=== PATIENT | male | born 1990 | race Caucasian/White ===

== ENCOUNTER 2023-01-06 21:05 | Observation (INO) ==
[2023-01-06] MEDS ORDERED: MoRPHine SULFATE 4 MG/ML 1 ML CARP\\VIAL IV STA (21:48)
[2023-01-06] MEDS ORDERED: SODIUM CHLORIDE 0.9% 1000ML 1,000 ML IV STA (21:48)
[2023-01-06] MEDS ORDERED: ONDANSETRON INJ 2 MG/ML 2 ML VIAL IV STA (21:48)
[2023-01-06 21:56] LABS: Basophils # (auto) 0.02 K/uL (0-0.2); Basophils % (auto) 0.2 %; Eosinophils # (auto) 0.06 K/uL (0-0.50); Eosinophils % (auto) 0.5 %; Hematocrit (blood only) 41.8 % (42.0-52.0); Hemoglobin 15.4 g/dl (14.0-18.0); Immature Granulocytes # (auto) 0.04 K/uL (0.01-0.20); Immature Granulocytes % (auto) 0.3 %; Lymphocytes # (auto) 1.38 K/uL (1.2-3.4); Lymphocytes % (auto) 11.1 %; Mean Corpuscular Hemoglobin 32.2 pg (25.0-34.0); Mean Corpuscular Hgb Conc 36.8 g/dL (32.0-36.0); Mean Corpuscular Volume 87.4 fL (80.0-100.0); Mean Platelet Volume 10.6 fL (9.4-12.4); Monocytes # (auto) 0.65 K/uL (0.11-0.59); Monocytes % (auto) 5.2 %; Neutrophils # (auto) 10.25 K/uL (1.40-6.50); Neutrophils % (auto) 82.7 %; Platelet Count 158 K/uL (130-400); RDW Coefficient of Variation 11.9 % (11.5-14.5); RDW Standard Deviation 38.1 fL (36.4-46.3); Red Blood Count 4.78 M/uL (4.70-6.10)
--- NOTE | 2023-01-06 21:58 | Emergency Department Note ---
History of Present Illness General Chief complaint: Abdominal Pain Stated complaint: ABD PAIN,NAUSEA Time Seen by Provider: 01/06/23 21:37 History of Present Illness Maximum Pain Intensity: 6 This is a 32-year-old male presenting to the emergency department for evaluation of right-sided abdominal pain. Patient symptoms began around 6 PM as he was cooking dinner. Initially he had discomfort that was in the periumbilical region, but it very quickly became more right-sided. He is nauseated without vomiting. He did have 1 small episode of diarrhea after onset of symptoms. The patient did eat a few green beans around 7 PM, but was not able to eat his dinner because of his discomfort. Patient has not had fevers or chills. He does not take medication on a regular basis and is otherwise healthy. No history of abdominal surgery. Current discomfort is rated a 6/10. Home Medications Medication Instructions Recorded Confirmed Type No Known Home Medications 01/06/23 01/06/23 History Allergies Allergy/AdvReac Type Severity Reaction Status Date / Time No Known Allergies Verified 01/06/23 22:06 Past Med/Surg History Medical History No chronic diseases present Surgical History No significant past surgical history Social History Smoking Status: Never smoker Preferred Language: [place] Feels Safe at Home: Yes Review of Systems A total of 10 systems reviewed and were otherwise negative Physical Exam Vital Signs Vital Signs - 24 hr 01/06/23 21:06 01/06/23 22:07 Temperature 37.1 C Temperature Source Temporal Artery Scan Pulse Rate 79 89 Pulse Rhythm Regular Pulse Strength Normal Respiratory Rate 18 Respiratory Effort / Characteristics Non-Labored Spontaneous Respiratory Depth Normal Respiratory Pattern Regular Blood Pressure 119/79 Blood Pressure Mean 92 Blood Pressure Position Sitting Pulse Oximetry 96 Oxygen Delivery Method Room Air Sepsis Recent Fever Within 48 Hours No Sepsis New/Unexplained Change in Mental Status N/A Sepsis Action Taken by Nursing No Action Required VITALS: Vitals are noted on the nurse's note and reviewed by myself. Vital signs stable. GENERAL: Well-developed, well-nourished, white male, who is in no acute distress and resting comfortably. Patient is cooperative with the examination. HEAD: Normocephalic atraumatic. MOUTH: Mucous membranes moist. Tonsils are not enlarged. Pharynx without erythema, blood, or exudate. Uvula midline. Airway patent. NECK: Supple without nuchal rigidity. No lymphadenopathy. No thyromegaly. Cervical spine is nontender. HEART: Regular rate and rhythm without murmurs gallops or rubs. LUNGS: Clear to auscultation bilaterally without wheezes, rales or rhonchi. No retractions or accessory muscle use. ABDOMEN: Positive normal bowel sounds x 4. Soft, nontender, without masses or organomegaly. No guarding or rebound tenderness. MUSCULOSKELETAL: No muscle atrophy, erythema, or edema noted. Full range of motion in all extremities. Course Administered Medications Discontinued Medications Sodium Chloride (Nss 1000ml) 1,000 mls @ 999 mls/hr IV .Q1H1M STA Stop: 01/06/23 22:48 Last Infusion: 01/06/23 23:57 Dose: 0 mls/hr Documented By: Admin: 01/06/23 21:58 Dose: 999 mls/hr Documented By: BEN Cefoxitin Sodium (Mefoxin) 2,000 mg in 60 mls @ 100 mls/hr IV NOW STA Stop: 01/06/23 23:47 Last Infusion: 01/07/23 00:19 Dose: 0 mls/hr Documented By: Admin: 01/06/23 23:44 Dose: 100 mls/hr Documented By: JORGE Ioversol (Optiray 320 100ml) 100 ml IV ONCE ONE Stop: 01/06/23 22:48 Last Admin: 01/06/23 22:47 Dose: 93 ml Documented By: SANTI Morphine Sulfate (Morphine Sulfate 4 Mg/Ml 1 Ml Carp\Vial) 4 mg IV NOW STA Stop: 01/06/23 21:49 Last Admin: 01/06/23 21:59 Dose: 4 mg Documented By: BEN Ondansetron HCl (Ondansetron Inj 2 Mg/Ml 2 Ml Vial) 4 mg IV NOW STA Stop: 01/06/23 21:49 Last Admin: 01/06/23 21:59 Dose: 4 mg Documented By: BEN Medical Decision Making Differential Diagnosis Differential diagnosis: Etiologies such as biliary colic, cholecystitis, hepatitis, pancreatitis, cardiac disease, pancreatitis, gastritis, peptic ulcer disease, appendicitis, cystitis, diverticulitis, mesenteric ischemia, inflammatory bowel disease, ileus, bowel obstruction, testicular/adnexal torsion, aortic pathology, shingles, as well as others were considered Laboratory Data 01/06/23 21:22 01/06/23 21:22 Lab Results 01/06/23 01/06/23 Range/Units 21:22 21:22 WBC 12.40 H (4.8-10.8) K/ul RBC 4.78 (4.70-6.10) M/uL Hgb 15.4 (14.0-18.0) g/dl Hct 41.8 L (42.0-52.0) % MCV 87.4 (80.0-100.0) fL MCH 32.2 (25.0-34.0) pg MCHC 36.8 H (32.0-36.0) g/dL RDW Std Deviation 38.1 (36.4-46.3) fL RDW Coeff of Hung 11.9 (11.5-14.5) % Plt Count 158 (130-400) K/uL MPV 10.6 (9.4-12.4) fL Immature Gran % (Auto) 0.3 % Neut % (Auto) 82.7 % Lymph % (Auto) 11.1 % [place] % (Auto) 5.2 % Eos % (Auto) 0.5 % Baso % (Auto) 0.2 % Neut # (Auto) 10.25 H (1.40-6.50) K/uL Lymph # (Auto) 1.38 (1.2-3.4) K/uL [place] # (Auto) 0.65 H (0.11-0.59) K/uL Eos # (Auto) 0.06 (0-0.50) K/uL Baso # (Auto) 0.02 (0-0.2) K/uL Immature Gran # (Auto) 0.04 (0.01-0.20) K/uL Sodium 136 (136-145) mmol/L Potassium 3.9 (3.5-5.1) mmol/L Chloride 101 (98-107) mmol/L Carbon Dioxide 28 (21-32) mmol/L Anion Gap 7 (3-11) BUN 20 (6-23) mg/dl Creatinine 1.31 (0.6-1.4) mg/dl Est Cr Clr Drug Dosing 91.6 ml/min Est GFR ( Amer) 82.3 ml/min Est GFR (Non-Af Amer) 71.0 ml/min BUN/Creatinine Ratio 15.3 (10-20) Glucose 124 H (70-99(Fasting)) mg/dl Calcium 9.2 (8.6-10.3) mg/dl Total Bilirubin 1.0 (0.2-1.0) mg/dl AST 27 (13-39) U/L ALT 28 (7-52) U/L Alkaline Phosphatase 48 (34-104) U/L Total Protein 7.6 (6.0-8.3) gm/dl Albumin 4.8 (3.4-5.0) gm/dl Globulin 2.8 (2.5-4.0) gm/dl Albumin/Globulin Ratio 1.7 (0.9-2) Lipase 6 L (11-82) U/L Imaging Data Radiologist's Impression: Abdomen/Pelvis CT 01/06/23 21:48 CR Exam(s): CT ABDOMEN + PELVIS With Contrast IV Amt: 93 ML OPTIRAY 320 EXAM: CT Abdomen and Pelvis With Intravenous Contrast CLINICAL HISTORY: Reason for exam: right side abd pain. TECHNIQUE: Axial computed tomography images of the abdomen and pelvis with intravenous contrast. CTDI is 24.2 mGy and DLP is 1193.04 mGy-cm. Automated exposure control was utilized for the study. A dose lowering technique was utilized adhering to the principles of ALARA. CONTRAST: Patient received 93 ML OPTIRAY 320 of IV contrast COMPARISON: No relevant prior studies available. FINDINGS: Lung bases: Unremarkable. No mass. No consolidation. ABDOMEN: Liver: Unremarkable. No mass. Gallbladder and bile ducts: Unremarkable. No calcified stones. No ductal dilation. Pancreas: Unremarkable. No mass. No ductal dilation. Spleen: Unremarkable. No splenomegaly. Adrenals: Unremarkable. No mass. Kidneys and ureters: Unremarkable. No solid mass. No hydronephrosis. Stomach and bowel: Unremarkable. No obstruction. No mucosal thickening. PELVIS: Appendix: The appendix is thick-walled with periappendiceal inflammatory change. No periappendiceal fluid collection is seen. Bladder: Unremarkable. No mass. Reproductive: Unremarkable as visualized. ABDOMEN and PELVIS: Intraperitoneal space: Unremarkable. No free air. No significant fluid collection. Bones/joints: No acute fracture. No dislocation. Soft tissues: Unremarkable. Vasculature: Unremarkable. No abdominal aortic aneurysm. Lymph nodes: Unremarkable. No enlarged lymph nodes. IMPRESSION: Findings compatible with acute appendicitis without evidence for perforation or abscess. Communications: Verify Receipt Electronically signed by: Ej Rosales MD 01/06/23 23:00 PM MDM Narrative Physical exam and history were performed. Nursing notes, EMR, and Medication List were personally reviewed. No social concerns were identified as barriers to patients care. Patient appears to have abdominal pain that started this evening. He does not appear toxic and vitals are stable. IV access was established and labs were obtained. Patient was hydrated and medicated as above. Because of his symptoms he was sent to CT scan for imaging. Patient's blood work is as above and was reviewed. He does have a slightly elevated white blood cell count of 12,000. He does not have significant anemia, bandemia, or significant electrolyte imbalance. Transaminases are not diagnostic. CT scan was reviewed by myself and radiology and does suggest acute appendicitis. This would correlate with the patient's symptoms. Patient was started on Mefoxin here in the ER. Case was discussed with the on-call general surgeon, Dr. Massey, who will evaluate the patient. Please see the surgical team's dictation for further pa tient course, plan, disposition. The chart was completed utilizing [employer] Speech Voice Recognition Software. Grammatical errors, random word insertions, pronoun errors, and incomplete sentences are an occasional consequence of this system due to software limitations, ambient noise, and hardware issues. Any formal questions or concerns about the content, text, or information contained within the body of this dictation should be directly addressed to the provider for clarification. . Impression & Plan Acute appendicitis Discharge Plan Visit Data Chief Complaint: Abdominal Pain Stated Complaint: ABD PAIN,NAUSEA ED Provider: Trav Holly ED Midlevel Provider: Adam Bourgeois Discharge Problem: Acute appendicitis Patient Disposition: Admitted As Inpatient Discharge Instructions Interventions: ED Discharge Assessment Last Done: 01/07/23 00:25
[2023-01-06 22:23] LABS: Albumin Level 4.8 gm/dl (3.4-5.0); Calcium 9.2 mg/dl (8.6-10.3); Potassium 3.9 mmol/L (3.5-5.1)
[2023-01-06 22:29] LABS: Albumin Globulin Ratio 1.7 (0.9-2); BUN Creatinine Ratio 15.3 (10-20); Creatinine Clr Calc Pharmacy 91.6 ml/min; Est GFR (African American) 82.3 ml/min; Globulin 2.8 gm/dl (2.5-4.0); Total Protein 7.6 gm/dl (6.0-8.3)
[2023-01-06] MEDS ORDERED: OPTIRAY 320 100ml IV ONE (22:47)
--- NOTE | 2023-01-06 23:01 | CT Scan Report ---
Exam(s): CT ABDOMEN + PELVIS With Contrast IV Amt: 93 ML OPTIRAY 320 EXAM: CT Abdomen and Pelvis With Intravenous Contrast CLINICAL HISTORY: Reason for exam: right side abd pain. TECHNIQUE: Axial computed tomography images of the abdomen and pelvis with intravenous contrast. CTDI is 24.2 mGy and DLP is 1193.04 mGy-cm. Automated exposure control was utilized for the study. A dose lowering technique was utilized adhering to the principles of ALARA. CONTRAST: Patient received 93 ML OPTIRAY 320 of IV contrast COMPARISON: No relevant prior studies available. FINDINGS: Lung bases: Unremarkable. No mass. No consolidation. ABDOMEN: Liver: Unremarkable. No mass. Gallbladder and bile ducts: Unremarkable. No calcified stones. No ductal dilation. Pancreas: Unremarkable. No mass. No ductal dilation. Spleen: Unremarkable. No splenomegaly. Adrenals: Unremarkable. No mass. Kidneys and ureters: Unremarkable. No solid mass. No hydronephrosis. Stomach and bowel: Unremarkable. No obstruction. No mucosal thickening. PELVIS: Appendix: The appendix is thick-walled with periappendiceal inflammatory change. No periappendiceal fluid collection is seen. Bladder: Unremarkable. No mass. Reproductive: Unremarkable as visualized. ABDOMEN and PELVIS: Intraperitoneal space: Unremarkable. No free air. No significant fluid collection. Bones/joints: No acute fracture. No dislocation. Soft tissues: Unremarkable. Vasculature: Unremarkable. No abdominal aortic aneurysm. Lymph nodes: Unremarkable. No enlarged lymph nodes. IMPRESSION: Findings compatible with acute appendicitis without evidence for perforation or abscess. Communications: Verify Receipt Electronically signed by: Ej Rosales MD 01/06/23 23:00 PM
[2023-01-06] MEDS ORDERED: cefOXitin 2,000 MG/60 ML BAG IV STA (23:12)
[2023-01-06 23:58] LABS: Appearance Urine Clear (Clear); Bilirubin Urine Negative (Negative); Blood Urine Negative (Negative); Color Urine Yellow; Glucose Urine UA Negative (Negative); Ketones Urine Negative (Negative); Leukocyte Esterase Urine Negative (Negative); Nitrite Urine Negative (Negative); Protein Urine Negative (Negative); Specific Gravity Urine 1.043 (1.000-1.030); Urobilinogen Urine Negative (Negative); pH Urine 6.5 (4.5-7.5)
[2023-01-07] MEDS: LACTATED RINGER'S 1,000 ML IV SCH ×3 (00:38→22:45)
[2023-01-07] MEDS ORDERED: MoRPHine SULFATE 4 MG/ML 1 ML CARP\\VIAL IV PRN (00:38)
[2023-01-07] MEDS ORDERED: ONDANSETRON INJ 2 MG/ML 2 ML VIAL IV PRN (00:38)
[2023-01-07] MEDS ORDERED: MoRPHine SULFATE 2 MG/ML CARP IV PRN (00:38)
--- NOTE | 2023-01-07 09:29 | Anesthesiology Consultation ---
Date of Service January 07, 2023 Assessment & Plan Chart Review Chart Review: clerk entry level initiated History Surgery Operation Date: 01/07/23 08:20 Proposed Procedures p Laparoscopic Appendectomy - Hilda Virk MD Height/Weight Height: 5 ft 10 in Weight: 92.4 kg Allergies Allergy/AdvReac Type Severity Reaction Status Date / Time No Known Allergies Verified 01/06/23 22:06 Medications Home Medications Medication Instructions Recorded Confirmed Last Taken No Known Home Medications 01/06/23 01/06/23 Unknown Active Medications Generic Name Dose Route Start Last Admin Trade Name Freq PRN Reason Stop Dose Admin Lactated Ringer's 1,000 mls @ 100 mls/hr 01/07/23 00:38 01/07/23 00:38 Lr IV 02/06/23 00:37 100 mls/hr .Q10H ANAY Administration Morphine Sulfate 2 mg 01/07/23 00:38 01/07/23 01:08 Morphine Sulfate 2 Mg/Ml Carp IV 01/21/23 00:37 2 mg Q3H PRN Administration Pain (1,2,3,4,5) & Pre PT Ondansetron HCl 4 mg 01/07/23 00:38 01/07/23 01:08 Ondansetron Inj 2 Mg/Ml 2 Ml Vial IV 02/06/23 00:37 4 mg Q4H PRN Administration Nausea And Vomiting NPO Date Last Intake of Fluids: 01/07/23 Time Last Intake of Fluids: 00:35 Date Last Intake of Solids: 01/07/23 Time Last Intake of Solids: 00:35 Past Medical History Medical History No chronic diseases present Past Surgical History Surgical History No significant past surgical history Social History Smoking Status: Never smoker Do You Dip or Chew Tobacco: No Hx Alcohol Use: Yes Alcohol type: beer alcohol intake frequency: other Alcohol Intake Frequency Comment: Weekends. Hx Substance Use: No Physical Exam Vital Signs Last Vital Signs Temp 98.1 F 01/07/23 07:12 Pulse 79 01/07/23 07:12 Resp 16 01/07/23 07:12 BP 119/69 01/07/23 07:12 Pulse Ox 95 01/07/23 07:12 O2 Del Method Room Air 01/07/23 07:12 Testing Laboratory Results 01/06/23 21:22 01/06/23 21:22 Urine Color Yellow 01/06/23 Unknown Urine Appearance Clear (Clear) 01/06/23 Unknown Urine pH 6.5 (4.5-7.5) 01/06/23 Unknown Ur Specific [place] 1.043 (1.000-1.030) H 01/06/23 Unknown Urine Protein Negative (Negative) 01/06/23 Unknown Urine Glucose (UA) Negative (Negative) 01/06/23 Unknown Urine Ketones Negative (Negative) 01/06/23 Unknown Urine Nitrite Negative (Negative) 01/06/23 Unknown Ur Leukocyte Esterase Negative (Negative) 01/06/23 Unknown
--- NOTE | 2023-01-07 10:05 | History & Physical Report ---
Date of Service January 07, 2023 Assessment & Plan (1) Acute appendicitis: Plan 32 year-old male with less than 24 hour history of abdominal pain with associated nausea and diarrhea. CT scan with acute appendicitis without perforation or rupture. Leukocytosis of 12k, afebrile. Plan: Discussed with patient imaging, lab and exam findings consistent with acute appendicitis. Discussed laparoscopic appendectomy, associated risks and expected recovery. Will plan to proceed with laparoscopic appendectomy today. All questions answered informed consent obtained keep npo Dr. Virk has seen patient and obtained informed consent, agrees with above. I reviewed pt's H/P, labs and CT scan with pt. I recommend to do laparoscopic appendectomy, possible open. Discussion with the patient about benefits the risk and the alternate of the procedure, the risks may include but not limited such as a bleeding, infection, abscess, injury to other organs, bowel obstruction. Patient understand, he signed informed consent. I answered all questions. pre-op iv antibiotic. Admission and Anticipated Discharge Date Admission Date: January 06, 2023 History of Present Illness Chief Complaint: abdominal pain Primary Care Provider: NO PCP Amor is a 32 year-old male who presented to emergency room last evening with complaint of abdominal pain that began at 6 pm. Pain was generalized and then radiated to the right lower abdomen. Associated nausea and diarrhea. No fevers or chills. No prior history of similar abdominal pain. No previous abdominal surgeries. Low appetites last evening. ER work-up included labs which showed leukocytosis of 12k . CT scan of abdomen/pelvis with IV contrast showing thick walled appendix with periappendiceal inflammation consistent with acute appendicitis. Current states he is feeling okay, pain about the same but controlled with pain medication. No vomiting since admission. No fevers Allergies Allergy/AdvReac Type Severity Reaction Status Date / Time No Known Allergies Verified 01/06/23 22:06 Home Medications Medication Instructions Recorded Confirmed Type No Known Home Medications 01/06/23 01/06/23 History Past Med/Surg History Medical History No chronic diseases present Surgical History No significant past surgical history Social History Smoking Status: Never smoker Second Hand Exposure: No; Do You Dip or Chew Tobacco: No; Tobacco Cessation Education Requested by Patient: No Hx Alcohol Use: Yes Alcohol type: beer Hx Substance Use: No Preferred Language: [place] Communication Ability: Effective Medical Education Specialist Required: No Beliefs That Will Affect Care: None Current Living Situation: Spouse Other Information That Helps Us Care for You: No Feels Safe at Home: Yes Safety Concerns: Feels Safe At This Time Assistive Devices: Glasses Assistive Devices Comment: Glasses not present at this time. Review of Systems Review of Systems: All systems reviewed & are unremarkable except as noted in HPI & below Physical Exam Constitutional: WD/WN, vitals as above cooperative and comfortable; no acute distress and not ill appearing Neck: normal visual inspection and trachea midline Respiratory: normal respiratory effort, lungs clear to auscultation Cardiovascular: RRR, no murmur, no edema Gastrointestinal (Abdomen): Inspection/Auscultation: abdomen normal to inspection; abdomen not distended and no abdominal surgical scar Percussion/Palpation: + abdomen tender (RLQ, positive Mcburnerys point) and abdomen soft; no guarding, abdomen not rigid and abdomen not firm Skin: no rashes, warm and dry no jaundice Psychiatric: A+Ox3, euthymic affect Results & Data Results & Data Vital Signs (Past 12 Hours) Vital Signs Temp Pulse Pulse Resp BP BP Pulse Ox 01/07/23 07:12 36.7 C 79 16 119/69 95 01/07/23 00:35 01/07/23 00:35 01/07/23 00:35 36.9 C 80 18 113/71 96 01/06/23 23:45 80 20 143/71 H 96 01/06/23 23:45 79 98 01/06/23 22:07 89 O2 Del Method 01/07/23 07:12 Room Air 01/07/23 00:35 Room Air 01/07/23 00:35 Room Air 01/07/23 00:35 Room Air 01/06/23 23:45 Room Air 01/06/23 23:45 Room Air 01/06/23 22:07 Laboratory Results 01/06/23 01/06/23 01/06/23 Range/Units Unknown Unknown 21:22 WBC (4.8-10.8) K/ul RBC (4.70-6.10) M/uL Hgb (14.0-18.0) g/dl Hct (42.0-52.0) % MCV (80.0-100.0) fL MCH (25.0-34.0) pg MCHC (32.0-36.0) g/dL RDW Std Deviation (36.4-46.3) fL RDW Coeff of Hung (11.5-14.5) % Plt Count (130-400) K/uL MPV (9.4-12.4) fL Immature Gran % (Auto) % Neut % (Auto) % Lymph % (Auto) % [place] % (Auto) % Eos % (Auto) % Baso % (Auto) % Neut # (Auto) (1.40-6.50) K/uL Lymph # (Auto) (1.2-3.4) K/uL [place] # (Auto) (0.11-0.59) K/uL Eos # (Auto) (0-0.50) K/uL Baso # (Auto) (0-0.2) K/uL Immature Gran # (Auto) (0.01-0.20) K/uL Sodium 136 (136-145) mmol/L Potassium 3.9 (3.5-5.1) mmol/L Chloride 101 (98-107) mmol/L Carbon Dioxide 28 (21-32) mmol/L Anion Gap 7 (3-11) BUN 20 (6-23) mg/dl Creatinine 1.31 (0.6-1.4) mg/dl Est Cr Clr Drug Dosing 91.6 ml/min Est GFR ( Amer) 82.3 ml/min Est GFR (Non-Af Amer) 71.0 ml/min BUN/Creatinine Ratio 15.3 (10-20) Glucose 124 H (70-99(Fasting)) mg/dl Calcium 9.2 (8.6-10.3) mg/dl Total Bilirubin 1.0 (0.2-1.0) mg/dl AST 27 (13-39) U/L ALT 28 (7-52) U/L Alkaline Phosphatase 48 (34-104) U/L Total Protein 7.6 (6.0-8.3) gm/dl Albumin 4.8 (3.4-5.0) gm/dl Globulin 2.8 (2.5-4.0) gm/dl Albumin/Globulin Ratio 1.7 (0.9-2) Lipase 6 L (11-82) U/L Urine Color Yellow Urine Appearance Clear (Clear) Urine pH 6.5 (4.5-7.5) Ur Specific [place] 1.043 H (1.000-1.030) Urine Protein Negative (Negative) Urine Glucose (UA) Negative (Negative) Urine Ketones Negative (Negative) Urine Blood Negative (Negative) Urine Nitrite Negative (Negative) Urine Bilirubin Negative (Negative) Urine Urobilinogen Negative (Negative) Ur Leukocyte Esterase Negative (Negative) SARS-CoV-2, RNA, NAAT NEGATIVE (NEGATIVE) 01/06/23 Range/Units 21:22 WBC 12.40 H (4.8-10.8) K/ul RBC 4.78 (4.70-6.10) M/uL Hgb 15.4 (14.0-18.0) g/dl Hct 41.8 L (42.0-52.0) % MCV 87.4 (80.0-100.0) fL MCH 32.2 (25.0-34.0) pg MCHC 36.8 H (32.0-36.0) g/dL RDW Std Deviation 38.1 (36.4-46.3) fL RDW Coeff of Hung 11.9 (11.5-14.5) % Plt Count 158 (130-400) K/uL MPV 10.6 (9.4-12.4) fL Immature Gran % (Auto) 0.3 % Neut % (Auto) 82.7 % Lymph % (Auto) 11.1 % [place] % (Auto) 5.2 % Eos % (Auto) 0.5 % Baso % (Auto) 0.2 % Neut # (Auto) 10.25 H (1.40-6.50) K/uL Lymph # (Auto) 1.38 (1.2-3.4) K/uL [place] # (Auto) 0.65 H (0.11-0.59) K/uL Eos # (Auto) 0.06 (0-0.50) K/uL Baso # (Auto) 0.02 (0-0.2) K/uL Immature Gran # (Auto) 0.04 (0.01-0.20) K/uL Sodium (136-145) mmol/L Potassium (3.5-5.1) mmol/L Chloride (98-107) mmol/L Carbon Dioxide (21-32) mmol/L Anion Gap (3-11) BUN (6-23) mg/dl Creatinine (0.6-1.4) mg/dl Est Cr Clr Drug Dosing ml/min Est GFR ( Amer) ml/min Est GFR (Non-Af Amer) ml/min BUN/Creatinine Ratio (10-20) Glucose (70-99(Fasting)) mg/dl Calcium (8.6-10.3) mg/dl Total Bilirubin (0.2-1.0) mg/dl AST (13-39) U/L ALT (7-52) U/L Alkaline Phosphatase (34-104) U/L Total Protein (6.0-8.3) gm/dl Albumin (3.4-5.0) gm/dl Globulin (2.5-4.0) gm/dl Albumin/Globulin Ratio (0.9-2) Lipase (11-82) U/L Urine Color Urine Appearance (Clear) Urine pH (4.5-7.5) Ur Specific [place] (1.000-1.030) Urine Protein (Negative) Urine Glucose (UA) (Negative) Urine Ketones (Negative) Urine Blood (Negative) Urine Nitrite (Negative) Urine Bilirubin (Negative) Urine Urobilinogen (Negative) Ur Leukocyte Esterase (Negative) SARS-CoV-2, RNA, NAAT (NEGATIVE) Diagnostic Findings ADDENDUM: 01/06/23 23:57 Verify Receipt Verified receipt with COOKIE Lou and given to Dr. Carter on 01/06 23:56 (-04:00) Electronically signed by: Ej Rosales MD Electronically signed by: Ej Rosales MD 01/06/23 23:00 PM ADDENDUM END Exam(s): CT ABDOMEN + PELVIS With Contrast IV Amt: 93 ML OPTIRAY 320 EXAM: CT Abdomen and Pelvis With Intravenous Contrast CLINICAL HISTORY: Reason for exam: right side abd pain. TECHNIQUE: Axial computed tomography images of the abdomen and pelvis with intravenous contrast. CTDI is 24.2 mGy and DLP is 1193.04 mGy-cm. Automated exposure control was utilized for the study. A dose lowering technique was utilized adhering to the principles of ALARA. CONTRAST: Patient received 93 ML OPTIRAY 320 of IV contrast COMPARISON: No relevant prior studies available. FINDINGS: Lung bases: Unremarkable. No mass. No consolidation. ABDOMEN: Liver: Unremarkable. No mass. Gallbladder and bile ducts: Unremarkable. No calcified stones. No ductal dilation. Pancreas: Unremarkable. No mass. No ductal dilation. Spleen: Unremarkable. No splenomegaly. Adrenals: Unremarkable. No mass. Kidneys and ureters: Unremarkable. No solid mass. No hydronephrosis. Stomach and bowel: Unremarkable. No obstruction. No mucosal thickening. PELVIS: Appendix: The appendix is thick-walled with periappendiceal inflammatory change. No periappendiceal fluid collection is seen. Bladder: Unremarkable. No mass. Reproductive: Unremarkable as visualized. ABDOMEN and PELVIS: Intraperitoneal space: Unremarkable. No free air. No significant fluid collection. Bones/joints: No acute fracture. No dislocation. Soft tissues: Unremarkable. Vasculature: Unremarkable. No abdominal aortic aneurysm. Lymph nodes: Unremarkable. No enlarged lymph nodes. IMPRESSION: Findings compatible with acute appendicitis without evidence for perforation or abscess. Code Status & VTE Plan VTE Prophylaxis Plan VTE Prophylaxis will be ordered: Yes
[2023-01-07] MEDS ORDERED: fentaNYL citrate PF 100 MCG/2 ML VIAL IV PRN (10:18)
[2023-01-07] MEDS ORDERED: PROMETHAZINE HCL 6.25 MG in SODIUM CHLORIDE 0.9% 50 ML IV PRN (10:18)
[2023-01-07] MEDS ORDERED: KETOROLAC 30 MG/ML VIAL IV PRN (10:18)
[2023-01-07] MEDS ORDERED: ATROPINE SULFATE 0.1 MG/ML 10ML SYR IV PRN (10:18)
[2023-01-07] MEDS ORDERED: MIDAZOLAM HCL 1 MG/ML 2ML VIAL ONE (10:25)
[2023-01-07] MEDS ORDERED: LIDOCAINE 2% 2 ML VIAL/AMP(20MG/ML) INFIL ONE (10:25)
[2023-01-07] MEDS ORDERED: fentaNYL citrate PF 100 MCG/2 ML VIAL ONE ×2 (10:25→11:26)
[2023-01-07] MEDS ORDERED: PROPOFOL IV EMULSION 10 MG/ML 20 ML VIAL IV ONE (10:25)
[2023-01-07] MEDS ORDERED: ROCURONIUM BROMIDE 10 MG/ML 5 ML VIAL IV ONE ×5 (10:25→12:28)
[2023-01-07] MEDS ORDERED: ONDANSETRON INJ 2 MG/ML 2 ML VIAL ONE (10:26)
--- NOTE | 2023-01-07 10:27 | History & Physical Bridge Note ---
Date of Service January 07, 2023 History & Physical Bridge Note I have examined the patient, reviewed the History & Physical and in the interval since the performance of the History & Physical I have noted the following changes of clinical significance: no changes noted
[2023-01-07] MEDS ORDERED: LIDOCAINE 1% LOCAL 20 ML VIAL ONE (10:28)
[2023-01-07] MEDS ORDERED: cefOXitin 2,000 MG in DEXTROSE 5% 50 ML IV STA ×2 (10:28→10:50)
[2023-01-07] MEDS ORDERED: BUPIVACAINE 0.5 % 5 MG/1 ML MPF 30ML VIAL ONE (10:28)
[2023-01-07] MEDS ORDERED: DEXAMETHASONE SOD INJ 4 MG/ML VIAL ONE (11:23)
[2023-01-07] MEDS ORDERED: KETOROLAC 30 MG/ML VIAL ONE (11:39)
[2023-01-07] MEDS ORDERED: BACITRACIN OINT 14 GM TUBE ONE (11:46)
[2023-01-07] MEDS ORDERED: GLYCOPYRROLATE 0.2 MG/ML VIAL ONE (11:48)
[2023-01-07] MEDS ORDERED: NEOSTIGMINE METHYLSULFATE 1 MG/ML 10ML VIAL ONE (11:48)
--- NOTE | 2023-01-07 11:56 | Post Operative Brief Note ---
Immediate Post Op Note v1 Date of Surgery January 07, 2023 Pre & Post Diagnosis Operation Date: 01/07/23 08:20 Pre-Op Diagnosis: ACUTE APPENDICITIS Post-Op Diagnosis: ACUTE APPENDICITIS I identified the patient and participated in the time-out.: Yes Procedure Operation Date: 01/07/23 08:20 Actual Procedures p Laparoscopic Appendectomy(Not Applicable) - Hilda Virk MD Surgeon Hilda Virk MD Leasing Sales Consultant JUAN Nunn Estimated Blood Loss 10 Findings Consistent with Post-Op Diagnosis acute appendicitis Fluids 1000ml Specimens appendix Anesthesia Type General Complications none Disposition Accompanied Patient To Recovery: Yes
--- NOTE | 2023-01-07 12:28 | Operative Report ---
Post Operative Report Pre & Post Diagnosis Operation Date: 01/07/23 08:20 Pre-Op Diagnosis: ACUTE APPENDICITIS Post-Op Diagnosis: ACUTE APPENDICITIS I identified the patient and participated in the time-out.: Yes Procedure Operation Date: 01/07/23 08:20 Actual Procedures p Laparoscopic Appendectomy(Not Applicable) - Hilda Virk MD Surgeon Hilda Virk MD [employer] Compounder JUAN Nunn Estimated Blood Loss 10 Findings Consistent with Post-Op Diagnosis acute appendicitis Fluids 1000ml Specimens appendix Drains none Anesthesia Type General Complications none Indications Patient is a 32 years old gentleman admitted to the hospital for acute appendicitis. I recommend to do a laparoscopy appendectomy possible open. I did talk to patient about benefits, risks and alternatives of the procedure, risks may include but not limited to such as bleeding, infection, abscess, injury or other organs, incisional hernia, and bowel obstruction patient understood, he signed informed consent. I answered all questions. Description of Procedure After identified patient to verify procedure, we brought patient to the OR and put the patient on the supine position on the OR table. Patient received a SCD on bilateral legs to prevent DVT. Patient received 2 g cefoxitin IV for prophylactic antibiotic. Patient received general anesthesia without difficulty. The abdomen was propped and dropped in routine fashion. After timeout, I injections of local anesthesia by using 1% lidocaine mixed with 0.5% Marcaine around umbilical area. Make a small transverse incision just above the umbilical. Dissection subcutaneous layer reaches the fascial layer open peritoneal layer in the direct region. Inserted a Goode trocar in contact to CO2 to create pneumoperitoneum for low rate is a 6 L/min pressure no more than 14 mmHg. Once we get a nice pneumoperitoneum we put the camera in and look around the abdomen. Showing acute appendicitis, no perforation. Normal finding on the small bowel large bowel. The put another two 5 mm trocar on the left lower quadrant area. We used a harmonic to take down the appendiceal. Once identified the base of the appendix. The use 45 mm Endo JONI staple transection of the base of appendix. Recheck at the staple line intact no active bleeding. Remove appendix through the patch back. There is a very inserted Goode trocar and connected to CO2 to create pneumoperitoneum again look around the abdomen, staple line intact no leak no active bleeding, then we removed all trocars under direct vision no active bleeding from trocar site, pneumoperitoneum was released. Close umbilical incision fascia layer by using 0 Vicryl [id number] x2 closed subcutaneous layer with 2-0 Vicryl interrupted, close skin by using 4-0 Vicryl continuous running close another two 5-minute trocar site the skin only by use of 4-0 Vicryl and put dressing on, the patient tolerated procedure well. all instrument needle sponge count correct x2 in the case. patient was transferred to recovery room in stable condition. the specimen sent to pathology. After procedure I did talk to patient about the OR finding procedure we did. patient understood. the first responder Daniella is necessary for this procedure however always hold the camera, retraction and exposure. thank you I attest to the content of the Intraoperative Record and any orders documented therein. Any exceptions are noted below.
[2023-01-07] MEDS ORDERED: oxyCODONE/ACETAMINOPHEN 5mg/325mg TAB PO PRN (13:19)
--- NOTE | 2023-01-07 14:04 | Anesthesiology Progress Note ---
Date of Service January 07, 2023 Anesthesia Post Procedure Vital Signs Vital Signs: Temp Pulse Pulse Pulse Resp BP BP 01/07/23 13:47 36.8 C 84 14 115/70 01/07/23 12:50 37.0 C 64 16 125/68 01/07/23 13:23 36.5 C 81 14 110/74 01/07/23 12:40 37.1 C 63 14 130/73 01/07/23 12:30 62 14 135/69 01/07/23 12:20 60 15 138/78 01/07/23 12:14 36.7 C 71 15 136/73 01/07/23 10:04 36.9 C 83 18 131/85 01/07/23 07:12 36.7 C 79 16 119/69 01/07/23 00:35 01/07/23 00:35 01/07/23 00:35 36.9 C 80 18 113/71 01/06/23 23:45 80 20 01/06/23 23:45 79 01/06/23 22:07 89 01/06/23 21:06 37.1 C 79 18 119/79 BP Pulse Ox O2 Del Method O2 Flow Rate 01/07/23 13:47 94 Room Air 01/07/23 12:50 95 Room Air 01/07/23 13:23 93 Room Air 01/07/23 12:40 93 Room Air 01/07/23 12:30 92 Room Air 01/07/23 12:20 98 Oxymask 11 01/07/23 12:14 98 Oxymask 11 01/07/23 10:04 96 Room Air 01/07/23 07:12 95 Room Air 01/07/23 00:35 Room Air 01/07/23 00:35 Room Air 01/07/23 00:35 96 Room Air 01/06/23 23:45 143/71 H 96 Room Air 01/06/23 23:45 98 Room Air 01/06/23 22:07 01/06/23 21:06 96 Room Air Pain Intensity Right Abdomen: Pain Intensity: 3 Transfer of Care Handoff Completed per policy Notes Mental Status: alert / awake / arousable Patient Amnestic to Procedure: Yes Nausea / Vomiting: adequately controlled Pain: adequately controlled Airway Patency, RR, SpO2: stable & adequate BP & HR: stable & adequate Hydration State: stable & adequate Anesthetic Complications: no major complications apparent
[2023-01-08 07:40] LABS: Basophils # (auto) 0.01 K/uL (0-0.2); Basophils % (auto) 0.1 %; Eosinophils # (auto) 0.04 K/uL (0-0.50); Eosinophils % (auto) 0.6 %; Hematocrit (blood only) 38.7 % (42.0-52.0); Hemoglobin 13.8 g/dl (14.0-18.0); Immature Granulocytes # (auto) 0.01 K/uL (0.01-0.20); Immature Granulocytes % (auto) 0.1 %; Lymphocytes # (auto) 1.67 K/uL (1.2-3.4); Lymphocytes % (auto) 24.8 %; Mean Corpuscular Hemoglobin 32.2 pg (25.0-34.0); Mean Corpuscular Hgb Conc 35.7 g/dL (32.0-36.0); Mean Corpuscular Volume 90.4 fL (80.0-100.0); Mean Platelet Volume 11.1 fL (9.4-12.4); Monocytes # (auto) 0.54 K/uL (0.11-0.59); Neutrophils # (auto) 4.46 K/uL (1.40-6.50); Neutrophils % (auto) 66.4 %; Platelet Count 143 K/uL (130-400); RDW Coefficient of Variation 12.2 % (11.5-14.5); RDW Standard Deviation 40.1 fL (36.4-46.3); Red Blood Count 4.28 M/uL (4.70-6.10); White Blood Count 6.73 K/ul (4.8-10.8)
[2023-01-08 08:26] LABS: Albumin Globulin Ratio 1.5 (0.9-2); Albumin Level 3.7 gm/dl (3.4-5.0); BUN Creatinine Ratio 9.6 (10-20); Calcium 8.8 mg/dl (8.6-10.3); Creatinine Clr Calc Pharmacy 105.3 ml/min; Est GFR (African American) 97.4 ml/min; Globulin 2.4 gm/dl (2.5-4.0); Potassium 3.9 mmol/L (3.5-5.1); Total Protein 6.1 gm/dl (6.0-8.3)
[2023-01-08] MEDS: LACTATED RINGER'S 1,000 ML IV SCH (11:05)
[2023-01-08] MEDS ORDERED: ACETAMINOPHEN 325 MG TAB PO PRN (11:29)
--- NOTE | 2023-01-08 14:28 | Discharge Summary ---
Date of Service January 08, 2023 Admission HPI Per Admitting Provider Amor is a 32 year-old male who presented to emergency room last evening with complaint of abdominal pain that began at 6 pm. Pain was generalized and then radiated to the right lower abdomen. Associated nausea and diarrhea. No fevers or chills. No prior history of similar abdominal pain. No previous abdominal surgeries. Low appetites last evening. ER work-up included labs which showed leukocytosis of 12k . CT scan of abdomen/pelvis with IV contrast showing thick walled appendix with periappendiceal inflammation consistent with acute appendicitis. Current states he is feeling okay, pain about the same but controlled with pain medication. No vomiting since admission. No fevers Principal Diagnosis Acute appendicitis Discharge Exam Constitutional WD/WN, vitals as above no acute distress and not ill appearing Respiratory normal respiratory effort; no respiratory distress Gastrointestinal (Abdomen) Inspection/Auscultation: abdomen normal to inspection and + abdominal surgical incision (covered with dressings, mild spotting present, dry); abdomen not distended Percussion/Palpation: + abdomen tender (mild at incision sites) and abdomen soft; no guarding, abdomen not rigid and abdomen not firm Skin no rashes, warm and dry Psychiatric A+Ox3, euthymic affect Discharge Data Allergies Allergy/AdvReac Type Severity Reaction Status Date / Time No Known Allergies Verified 01/06/23 22:06 Consultations 01/06/23 23:13 Consult General Surgery Stat Procedures Performed Operation Date: 01/07/23 08:20 Actual Procedures p Laparoscopic Appendectomy(Not Applicable) - Hilda Virk MD Ordered Studies 01/06/23 21:48 CT abd pelvis IV con only Stat Hospital Course (1) Acute appendicitis: Plan Patient was admitted to hospital from emergency department and evaluated in the morning. Patient taken to operating room for laparoscopic appendectomy by Dr. Virk on 01/07/2023. Patient found to have acute appendicitis without perforation or rupture. Patient tolerated procedure without difficulty and was transferred to med/surg for postop care. Diet advanced to clear liquids, activity as tolerated, IV Cefoxitin was continued, PO Percocet as needed for pain. Patient evaluated on POD # 1 , pain controlled, tolerating clear liquids. Patient was discharged home in stable condition. Total Time Total Time Spent Total Time Spent (In Minutes): 30 minutes Total Time Includes: Examination of the Patient, Discharge Planning and Medic ation Reconciliation Discharge Plan Discharge Items Patient Disposition: Home - Self-Care Reason For Visit: ACUTE APPENDICITIS Discharge Diagnosis: acute appendicitis Activity: Per Instructions section Non-emergency contact: Primary Care Provider and Surgeon Call non-emergency contact if: you have any medication questions, your pain is not controlled, your pain is worsening, your pain is concerning for you, you have a fever, your temperature is above 101, your wound has increased redness, your wound has increased drainage and your wound pain has increased Follow-up/Referrals: Daniella Thomson PA-C [Physician Manager Validation] - 01/22/23 10:00 am (Please arrive 15 min. early to appointment) PCP,NO [Primary Care Provider] - Diet: Regular Addtl Attending Provider Instructions: Post-Surgical ~Discharge Instructions Activity Recommendations: - lifting limitation: (20 pounds for 4 weeks), - exercise/sex/sports limit: (nonstrenuous for 2 weeks), - driving or machine use limit: (none for 1 week or until pain free), - Shower/bathe limit: (may shower beginning Friday) Diet: - Resume previous diet SPECIAL CARE INSTRUCTIONS: - May shower on Friday, sponge bath around incision and wash hair in meantime. On Friday, remove outer dressings and shower. Let water run over area and pat dry. - Leave steri strips on for one week and then remove. - Call the surgeon's office with any questions or concerns - - (ex. temperature higher than 101 degrees F, excessive bleeding or pain). MEDICATIONS: - Resume previous medications unless instructed otherwise by your surgeon. - May alternate extra strength Tylenol and Ibuprofen as needed for mild to moderate pain -650 mg Tylenol every 6 hours as needed - Ibuprofen 600 mg every 6 hours as needed (take with food) - [place] 1 every 6 hours, as needed for moderate to severe pain - Recommend daily stool softener (Colace) while taking narcotic pain medication to prevent constipation or straining. Drink plenty of water daily. Can also take daily Miralax for 3 days if unable to have bowel movement. FOLLOW UP VISIT: - If not already scheduled, please call the office to schedule a two week follow-up appointment. Office number Pending Studies at Discharge: Yes (surgical pathology, will be reviewed at post op visit) Stand-Alone Forms: My [facility] [address], Work/School Release, Smoking Cessation Medications and DC Order Prescriptions: New hydrocodone-acetaminophen 5-325 mg tablet 1 tab PO Q6H PRN (Reason: pain) Qty: 5 0RF Discharge Orders: Discharge Order (Routine); Ordered 01/08/23 Ordered By: Daniella Royal/Other Patient Handouts: After an Appendectomy Admission Data Admit Date/Time: 01/06/23 23:16 Attending Provider: Wen Massey Admit Provider: Wen Massey Primary Care Provider: PCP,NO Other Providers: Wen Massey Other Interventions: Discharge Summary Assessment (RN) Last Done: 01/08/23 12:51
== END 2023-01-08 13:42 | disposition home or self-care (01) ==
LOC: 3N 21:05 → ED 21:05 → 3N 01-07 00:25
DX: K35.80 Unspecified acute appendicitis